=== PATIENT | male | born 1980 | race Caucasian/White ===

== ENCOUNTER → 2019-10-07 | Day surgery (SDC) | payer OTHER ==
[2019-10-02 15:16] LABS: BASOPHILS % 0.4 % (0.0-1.0); EOSINOPHILS # (AUTO) 0.1 (0.0-0.4); EOSINOPHILS % 2.1 % (0.0-6.0); HEMATOCRIT 43.6 % (38.2-49.6); HEMOGLOBIN 13.9 g/dL (14.0-18.0); LYMPHOCYTES # (AUTO) 2.4 (1.0-3.2); MEAN CORPUSCULAR HEMOGLOBIN 26.6 pg (28-32); MEAN CORPUSCULAR HGB CONC 31.9 g/dL (31-35); MEAN CORPUSCULAR VOLUME 83.4 fL (81-99); MONOCYTES # (AUTO) 0.7 (0.2-0.8); MONOCYTES % 10.8 % (4.4-11.3); NEUTROPHILS # (AUTO) 3.5 (2.1-6.9); NEUTROPHILS % 51.1 % (38.7-80.0); PLATELET COUNT 405 x10e3/uL (140-360); RED BLOOD COUNT 5.23 x10e6/uL (4.3-5.7); RED CELL DISTRIBUTION WIDTH 21.2 % (11.7-14.4)
[2019-10-02 15:36] LABS: ALANINE AMINOTRANSFERASE 155 IU/L (0-55); ALBUMIN 4.2 g/dL (3.5-5.0); ALBUMIN/GLOBULIN RATIO 1.2 (0.8-2.0); ALKALINE PHOSPHATASE 37 IU/L (40-150); ANION GAP 14.1 mmol/L (8-16); BLOOD UREA NITROGEN 30 mg/dL (7-26); BUN/CREATININE RATIO 29 (6-25); CALCIUM 9.3 mg/dL (8.4-10.2); CARBON DIOXIDE 24 mmol/L (22-29); CHLORIDE 99 mmol/L (98-107); CREATININE, SERUM 1.02 mg/dL (0.72-1.25); EST GLOMERULAR FILTRATION RATE > 60 ML/MIN (60-); GLUCOSE 88 mg/dL (74-118); POTASSIUM 4.1 mmol/L (3.5-5.1); SODIUM 133 mmol/L (136-145)
[~2019-10-07] MED LIST: BUPIVACAINE 0.25%/EPI 30ML SDV INJ ONE; CEFAZOLIN SOD 1 GM/NS 50ML 100 ML IV ONE; KETOROLAC TROMETHAMINE 30 MG/ML VIAL ONE; LIDOCAINE HCL 2% LOCAL INJ 5 ML SDV VIAL INJ ONE; ONDANSETRON HCL INJ 2MG/ML 2ML 2 MG/ML VIAL ONE; PROPOFOL IV EMULSION 10 MG/ML 20 ML VIAL ONE; SEVOFLURANE INHAL SOLN 250 ML PEN BTL ONE; TESTOSTERO100 MG/1 M INJ
[2019-10-07 13:00] VITALS: BP 112/67
--- NOTE | 2019-10-07 13:44 | Operative Report ---
DATE OF PROCEDURE: 10/07/2019 SURGEON: Aamir Chaudhary MD PREOPERATIVE DIAGNOSIS: Umbilical hernia. POSTOPERATIVE DIAGNOSIS: Umbilical hernia. OPERATIVE PROCEDURE: Repair of umbilical hernia. ANESTHESIA: General. INDICATIONS FOR SURGERY: This patient is a 39-year-old male with enlarging umbilical hernia with discomfort. The patient consented for repair. Attendant risks have been discussed. PROCEDURE FINDING: Incarcerated omentum in the hernia sac. DESCRIPTION OF PROCEDURE: The patient was brought to the OR, intubated. The abdomen was then prepped with alcohol and draped in sterile fashion. A supraumbilical curvilinear incision was made extending down to the fascia. The hernia sac dissected off the umbilicus. Incarcerated omentum reduced and excess hernia sac was trimmed at the fascial edge. Peritoneum was closed with interrupted 3-0 Vicryl. Fascial repair was then carried out with interrupted 0 prolene suture in a transverse direction. After fascial repair, the operative field was then irrigated. Hemostasis was achieved. Subcutaneous tissue was approximated with 3-0 Vicryl. Skin was closed with subcuticular stitch. The patient was extubated and transported to recovery room in guarded condition. ESTIMATED BLOOD LOSS: Minimal. Aamir Chaudhary MD DNL/MODL /[id number]
== END | disposition home or self-care (01) ==
LOC: OR 10:39
PROVIDERS: ATTEND Surgery
DX: K42.0 Umbilical hernia with obstruction, without gangrene (principal); Z01.810 Encounter for preprocedural cardiovascular examination; Z01.812 Encounter for preprocedural laboratory examination; Z11.59 Encounter for screening for other viral diseases
CPT/HCPCS: 36415; 80053; 85025; 93005; J0690; J1885; J2001; J2405; U0002